=== PATIENT | male | born 1975 | race Caucasian/White ===

== ENCOUNTER 2025-07-27 07:50 | Outpatient (CLI) | payer BC | END 2025-07-27 07:51 | disposition home or self-care (01) | LOC: BICULT 07:50 | PROVIDERS: ATTEND Family Medicine Sports Medicine | DX: K76.0 Fatty (change of) liver, not elsewhere classified (principal); R16.2 Hepatomegaly with splenomegaly, not elsewhere classified | CPT/HCPCS: 76700 ==